=== PATIENT | male | born 1945 | race Caucasian/White ===

== ENCOUNTER 2023-05-06 16:39 | Observation (INO) | payer MEDICARE ==
[2023-05-06] MEDS ORDERED: BABY ASPIRIN 81 MG CHEW ONE (17:02)
[2023-05-06] MEDS ORDERED: BABY ASPIRIN 81 MG CHEW PO ONE (17:04)
[2023-05-06 17:07] LABS: Absolute Neutrophil Ct (ANC) 5.56 x10^3/uL (1.4-6.9); BASOPHIL % 0.5 % (0.0-0.4); Basophil (Absolute #) 0.04 x10^3/uL (0-0.4); Eosinophil % 1.1 % (0.00-5.0); Eosinophil (Absolute #) 0.09 x10^3/uL (0-0.5); Hematocrit 43.3 % (42-50); Hemoglobin 14.7 g/dL (12.5-18.0); IMMATURE GRAN # 0.02 x10^3u/L (0.00-0.03); IMMATURE GRAN % 0.3 % (0.00-0.4); Lymphocyte (Absolute #) 1.46 x10^3/uL (1.0-4.6); Lymphocytes % 18.6 % (24.0-44.0); Mean Cell Volume 89.8 fL (78-100); Mean Corpuscular Hemoglobin 30.5 pg (26-32); Mean Corpuscular Hgb Concent. 33.9 g/dL (32-36); Mean Platelet Volume 9.2 fL (7.5-11.0); Monocyte (Absolute #) 0.69 x10^3/uL (0.0-1.3); Monocytes % 8.8 % (0.0-12.0); Neutrophil % 70.7 % (36.0-66.0); Platelet Count 161 x10^3/uL (150-450); Red Blood Count 4.82 x10^6/uL (4.1-5.6); Red Cell Distribution Width 13.2 % (11.5-14.0); White Blood Count 7.9 x10^3/uL (4.0-10.5)
[2023-05-06 17:35] LABS: ALBUMIN 4.3 g/dL (3.5-5.0); ALKALINE PHOSPHATASE 87 U/L (38-126); BLOOD UREA NITROGEN 14 mg/dL (9-20); CHLORIDE 101 mmol/L (98-107); Calcium 8.7 mg/dL (8.4-10.2); Carbon Dioxide 25 mmol/L (22-30); Creatinine 1 0.82 mg/dL (0.66-1.25); EST GLOMERULAR FILTRATION RATE > 60.0 ML/MIN; Glucose 128 mg/dL (74-106); NT PRO BNPII 230 pg/mL (<300); Potassium 3.3 mmol/L (3.5-5.1); SGOT/AST 37 U/L (17-59); SGPT/ALT 26 U/L (0-50); SODIUM 139 mmol/L (137-145); Total Protein 7.6 g/dL (6.3-8.2)
[2023-05-06] MEDS ORDERED: Klor Con PO ONE ×2 (19:03→19:10)
--- NOTE | 2023-05-06 19:06 | ERPHSYRPT ---
- History of Present Illness Time Seen by Provider: 05/06/23 19:02 Historian: patient Exam Limitations: no limitations Patient Subjective Stated Complaint: C/O Chest pain that started approx one hour prior to coming to the ER. Pain is intermitted and sharp. Triage Nursing Assessment: Patient ambulated back to ER. No SOB or distress noted. He is alert and oriented. Pitting edema noted to BLE; right worse than the left. Skin tone normal with face slightly flushed. Physician History: Patient is a 77-year-old male with a history of hypertension hypercholesterolemia presents to our ED with a history of bilateral chest pain. Pain started approximately 2 hours prior to arrival. Patient denies a history of the same. Patient states he is in severe stress due to the loss of his yesterday. Patient's of a heart attack at home. Patient symptoms are ongoing. He has not taken aspirin. Symptoms are mild to moderate in intensity. No specific worsening improving factors. No associated fever no trauma. No nausea vomiting or diaphoresis. Patient voices no other complaints or concerns at this time. Portions of this note were created with voice recognition technology. There may be grammatical, spelling, punctuation or sound alike errors Timing/Duration: today Activities at Onset: none Quality: sharpness Location: other (Bilateral chest) Chest Pain Radiation: no radiation Severity of Pain-Max: moderate Severity of Pain-Current: mild Modifying Factors: Improves With: nothing Associated Symptoms: denies symptoms Nitro Today/Relief: no nitro taken today Aspirin Treatment Today: no aspirin today Allergies/Adverse Reactions: ranitidine HCl [From Zantac] Allergy (Verified 05/06/23 16:49) Sulfa (Sulfonamide Antibiotics) Allergy (Verified 05/06/23 16:49) valsartan [From Diovan] Allergy (Verified 05/06/23 16:49) Home Medications: Amlodipine Besylate [Norvasc] 7.5 mg PO DAILY 05/06/23 [History] Aspirin [Adult Low Dose Aspirin EC] 1 tab PO DAILY 05/06/23 [History] Atorvastatin Calcium [Lipitor] 1 tab PO HS 05/06/23 [History] Finasteride 5 mg [Proscar 5 MG] 1 tab PO DAILY 05/06/23 [History] Metoprolol Tartrate 50 mg [Lopressor 50 MG] 1 tab PO BID 05/06/23 [History] Nabumetone 1 tab PO DAILY 05/06/23 [History] Omeprazole 1 cap PO DAILY 05/06/23 [History] Tamsulosin HCl 0.4 mg [Flomax 0.4 MG] 1 cap PO DAILY 05/06/23 [History] Hx Tetanus, Diphtheria Vaccination/Date Given: Yes Hx Influenza Vaccination/Date Given: Yes Hx Pneumococcal Vaccination/Date Given: Yes Immunizations Up to Date: Yes Travel Risk - International Travel Have you traveled outside of the country in past 3 weeks: No - Coronavirus Screening Are you exhibiting any of the following symptoms?: No Close contact with a COVID-19 positive Pt in past 14-21 Days: No - Vaccine Status Have you recieved a Covid-19 vaccination: No - Review of Systems Constitutional: No Symptoms, No Fever, No Chills Eyes: No Symptoms Ears, Nose, & Throat: No Symptoms Respiratory: No Symptoms, No Cough, No Dyspnea Cardiac: No Symptoms, No Chest Pain, No Edema, No Syncope Abdominal/Gastrointestinal: No Symptoms, No Abdominal Pain, No Nausea, No Vom iting, No Diarrhea Genitourinary Symptoms: No Symptoms, No Dysuria Musculoskeletal: No Symptoms, No Back Pain, No Neck Pain Skin: No Symptoms, No Rash Neurological: No Symptoms, No Dizziness, No Focal Weakness, No Sensory Changes Psychological: No Symptoms Endocrine: No Symptoms Hematologic/Lymphatic: No Symptoms Immunological/Allergic: No Symptoms All Other Systems: Reviewed and Negative - Past Medical History Pertinent Past Medical History: Yes Neurological History: No Pertinent History, Stroke Cardiac History: Arrhythmia, High Cholesterol, Hypertension Respiratory History: COPD Endocrine Medical History: No Pertinent History Musculoskeletal History: Degenerative Disk Disease GI Medical History: GERD, Gallbladder Disease Other Medical History: leaky heart valve per Dr. Hinkle (patient reports) - Past Surgical History Past Surgical History: Yes Cardiac: Cardiac Catheterization, Cardiac Stent Gastrointestinal: Appendectomy, Cholecystectomy Musculoskeletal: Orthopedic Surgery Other Surgical History: shoulder cyst, right hip replacement, coccyx removed - Social History Smoking Status: Former smoker Exposure to second hand smoke: No Drug Use: none Patient Lives Alone: No - Nursing Vital Signs Nursing Vital Signs: Initial Vital Signs Temperature 97.8 F 05/06/23 16:50 Pulse Rate 68 05/06/23 16:50 Respiratory Rate 18 05/06/23 16:50 Blood Pressure 181/90 05/06/23 16:50 O2 Sat by Pulse Oximetry 99 05/06/23 16:50 Pain Scale Pain Intensity 3 - Physical Exam General Appearance: no apparent distress, alert Eye Exam: PERRL/EOMI, eyes nml inspection Ears, Nose, Throat Exam: normal ENT inspection, moist mucous membranes Neck Exam: normal inspection, non-tender, supple, full range of motion Respiratory Exam: normal breath sounds, lungs clear, airway intact, No respiratory distress Cardiovascular Exam: regular rate/rhythm, normal heart sounds, normal peripheral pulses Gastrointestinal/Abdomen Exam: soft, No tenderness, No mass Back Exam: normal inspection, No CVA tenderness, No vertebral tenderness Extremity Exam: normal inspection, normal range of motion, other (Right lower extremity somewhat more swollen than the left. Negative Homans' sign. Patient states this is chronic. Bilateral extremities neurovascular intact distally.) Neurologic Exam: alert, oriented x 3, cooperative, normal mood/affect, sensation nml, No motor deficits Skin Exam: normal color, warm, dry SpO2 Interpretation: normal SpO2: 96 O2 Delivery: Room Air - Course Nursing assessment & vital signs reviewed: Yes EKG Interpreted by Me: RATE (63), Sinus Rhythm, NORMAL AXIS, NORMAL INTERVALS - Radiology Exams Chest X-ray Interpretation: Interpreted by me (Negative chest x-ray) - CT Exams Chest CT Interpretation: Tele-radiologist Report (CT chest negative PE no acute findings. Small hiatal hernia fatty liver old granulomatous disease) Ordered Tests: Active Orders 24 hr Category Date Time Status Warehouse Delivery Manager STAT Care 05/06/23 16:51 Active EKG-ER Only STAT Care 05/06/23 16:50 Active IV Insertion STAT Care 05/06/23 16:50 Active Pulse Oximetry (ED) STAT Care 05/06/23 16:50 Active CHEST 1 VIEW (PORTABLE) Stat Exams 05/06/23 16:50 Taken CHEST WITH CONTRAST [CT] Stat Exams 05/06/23 19:44 Taken CBC W DIFF Stat Lab 05/06/23 16:55 Completed CMP Stat Lab 05/06/23 16:55 Completed D-DIMER QUANTITATIVE Stat Lab 05/06/23 16:50 Completed NT PRO BNPII Stat Lab 05/06/23 16:55 Completed TROPONIN Q4H Lab 05/06/23 16:55 Completed TROPONIN Q4H Lab 05/06/23 21:00 Ordered TROPONIN Q4H Lab 05/07/23 01:00 Ordered Medication Summary Discontinued Medications Generic Name Dose Route Start Last Admin Trade Name Kathryn PRN Reason Stop Dose Admin Aspirin 243 mg 05/06/23 17:04 05/06/23 17:05 Aspirin 81 Mg Tab.Chew PO 05/06/23 17:05 243 mg STAT ONE Administration Aspirin Confirm 05/06/23 17:02 Aspirin 81 Mg Tab.Chew Administered 05/06/23 17:03 Dose 243 mg .ROUTE .STK-MED ONE Nitroglycerin 1 gm 05/06/23 19:25 05/06/23 19:41 Nitroglycerin 1 Gm Packet TOP 05/06/23 19:26 1 gm STAT ONE Administration Nitroglycerin Confirm 05/06/23 19:41 Nitroglycerin 1 Gm Packet Administered 05/06/23 19:42 Dose 1 gm .ROUTE .STK-MED ONE Potassium Chloride 40 meq 05/06/23 19:03 05/06/23 19:10 Potassium Chloride Tab 10 Meq Tab PO 05/06/23 19:04 40 meq STAT ONE Administration Potassium Chloride Confirm 05/06/23 19:10 Potassium Chloride Tab 10 Meq Tab Administered 05/06/23 19:11 Dose 40 meq PO .STK-MED ONE Lab/Rad Data: Laboratory Result Diagrams 05/06/23 16:55 05/06/23 16:55 Laboratory Results 05/06/23 05/06/23 05/06/23 Range/Units 16:55 16:55 16:55 WBC 7.9 (4.0-10.5) x10^3/uL RBC 4.82 (4.1-5.6) x10^6/uL Hgb 14.7 (12.5-18.0) g/dL Hct 43.3 (42-50) % MCV 89.8 (78-100) fL MCH 30.5 (26-32) pg MCHC 33.9 (32-36) g/dL RDW 13.2 (11.5-14.0) % Plt Count 161 (150-450) x10^3/uL MPV 9.2 (7.5-11.0) fL Gran % 70.7 H (36.0-66.0) % Immature Gran % (Auto) 0.3 (0.00-0.4) % Nucleat RBC Rel Count 0.0 (0.00-0.1) % Eos # (Auto) 0.09 (0-0.5) x10^3/uL Immature Gran # (Auto) 0.02 (0.00-0.03) x10^3u/L Absolute Lymphs (auto) 1.46 (1.0-4.6) x10^3/uL Absolute Monos (auto) 0.69 (0.0-1.3) x10^3/uL Absolute Nucleated RBC 0.00 (0.00-0.01) x10^3u/L Lymphocytes % 18.6 L (24.0-44.0) % Monocytes % 8.8 (0.0-12.0) % Eosinophils % 1.1 (0.00-5.0) % Basophils % 0.5 (0.0-0.4) % Absolute Granulocytes 5.56 (1.4-6.9) x10^3/uL Basophils # 0.04 (0-0.4) x10^3/uL D-Dimer (0.0-0.50) mg/L Sodium 139 (137-145) mmol/L Potassium 3.3 L (3.5-5.1) mmol/L Chloride 101 (98-107) mmol/L Carbon Dioxide 25 (22-30) mmol/L Anion Gap 16.0 H (5-15) MEQ/L BUN 14 (9-20) mg/dL Creatinine 0.82 (0.66-1.25) mg/dL Estimated GFR > 60.0 ML/MIN Glucose 128 H (74-106) mg/dL Calcium 8.7 (8.4-10.2) mg/dL Total Bilirubin 1.70 H (0.2-1.3) mg/dL AST 37 (17-59) U/L ALT 26 (0-50) U/L Alkaline Phosphatase 87 (38-126) U/L Troponin I < 0.012 (0.000-0.034) ng/mL NT-Pro-B Natriuret Pep 230 (<300) pg/mL Serum Total Protein 7.6 (6.3-8.2) g/dL Albumin 4.3 (3.5-5.0) g/dL 05/06/23 Range/Units 16:50 WBC (4.0-10.5) x10^3/uL RBC (4.1-5.6) x10^6/uL Hgb (12.5-18.0) g/dL Hct (42-50) % MCV (78-100) fL MCH (26-32) pg MCHC (32-36) g/dL RDW (11.5-14.0) % Plt Count (150-450) x10^3/uL MPV (7.5-11.0) fL Gran % (36.0-66.0) % Immature Gran % (Auto) (0.00-0.4) % Nucleat RBC Rel Count (0.00-0.1) % Eos # (Auto) (0-0.5) x10^3/uL Immature Gran # (Auto) (0.00-0.03) x10^3u/L Absolute Lymphs (auto) (1.0-4.6) x10^3/uL Absolute Monos (auto) (0.0-1.3) x10^3/uL Absolute Nucleated RBC (0.00-0.01) x10^3u/L Lymphocytes % (24.0-44.0) % Monocytes % (0.0-12.0) % Eosinophils % (0.00-5.0) % Basophils % (0.0-0.4) % Absolute Granulocytes (1.4-6.9) x10^3/uL Basophils # (0-0.4) x10^3/uL D-Dimer 1.00 H* (0.0-0.50) mg/L Sodium (137-145) mmol/L Potassium (3.5-5.1) mmol/L Chloride (98-107) mmol/L Carbon Dioxide (22-30) mmol/L Anion Gap (5-15) MEQ/L BUN (9-20) mg/dL Creatinine (0.66-1.25) mg/dL Estimated GFR ML/MIN Glucose (74-106) mg/dL Calcium (8.4-10.2) mg/dL Total Bilirubin (0.2-1.3) mg/dL AST (17-59) U/L ALT (0-50) U/L Alkaline Phosphatase (38-126) U/L Troponin I (0.000-0.034) ng/mL NT-Pro-B Natriuret Pep (<300) pg/mL Serum Total Protein (6.3-8.2) g/dL Albumin (3.5-5.0) g/dL - Progress Progress: improved Air Movement: good Progress Note: Case discussed with Dr. Vaughn who accepts admission at 1929. Second troponin pending. D-dimer pending. Plan of care discussed with patient. He agrees to admission at [facility] for further evaluation and treatment. Portions of this note were created with voice recognition technology. There may be grammatical, spelling, punctuation or sound alike errors Patient is a 77-year-old male presents to our ED with complaint of chest pain. Patient is under severe stress as his of heart attack in his home yesterday. Patient chest pain is bilateral chest described as a sharp sensation . Patient has significant cardiac risk factors including age high cholesterol and high blood pressure. Patient's last cardiac work-up was approximately a year ago which she states was negative. Patient admits to history of a "leaky cardiac valve". Physical exam reveals swelling of the right lower extremity. No calf pain. Negative Jb's. Patient states this is chronic due to a previous fracture that required a 7-hour surgical procedure for reconstruction. Patient denies shortness of breath. Testing ordered includes EKG which reveals normal sinus rhythm. No obvious ischemic changes at rest. Chest x-ray is essentially nonremarkable. CBC CMP ordered as well. CMP reveals a hypokalemia. Potassium replacement administered. Patient received milliequivalents potassium p.o. D-dimer pending. BNP within normal limits. Troponin negative. Heart score calculation is 4. Admitting diagnosis chest pain acute coronary syndrome. Complexity of problem addressed is moderate new diagnosis with uncertain prognosis Complexity data reviewed and analyzed is extensive. Testing ordered, reviewed and analyzed by Dr. Sosa. Dr. Sosa independently reviewed the EKG and chest x- ray. Patient management and plan of care discussed with hospitalist excepts admission to observation. Risk of complication and or risk morbidity/mortality patient management is high. Patient will require hospitalization for further evaluation and treatment. Plan of care established via shared decision making. Vital stable. Patient voices no other complaints or concerns at this time. Portions of this note were created with voice recognition technology. There may be grammatical, spelling, punctuation or sound alike errors 05/06/23 19:29 D-dimer positive. CTA chest negative for PE. Findings on CTA chest include small hiatal hernia, fatty liver and old granulomatous disease 05/06/23 21:19 Blood Culture(s) Obtained: No Antibiotics given: No Will see patient in: hospital (observation) Counseled pt/family regarding: lab results, diagnosis, rad results - Departure Departure Disposition: Observation Clinical Impression: Chest pain, Hypokalemia, ACS (acute coronary syndrome), Hiatal hernia, Fatty liver Condition: Stable Critical Care Time: No Referrals: KALEN MO MD [Primary Care Provider] - Follow up/PCP as directed
[2023-05-06] MEDS ORDERED: NITRO-BID 2% UD PACKETS TOP ONE (19:25)
[2023-05-06] MEDS ORDERED: NITRO-BID 2% UD PACKETS ONE (19:41)
[2023-05-07] MEDS ORDERED: TYLENOL 325 MG PO PRN (00:47)
--- NOTE | 2023-05-07 00:57 | PCM.HP ---
History of Present Illness - Chief Complaint Chief Complaint: chest pain Date: 05/07/23 History of Present Illness: This is a 77-year-old male admitted to the hospital for evaluation of chest pain. He has past medical history of hypertension, COPD, CAD status post PCI, "leaky heart valve", hyperlipidemia, BPH. He presented to the ED this evening for evaluation of chest pain ongoing 2 hours. He reports that he has had severe stress due to his passing away the day prior. Pain is located on each side of chest which he is able to point to with his fingers, describes as sharp and last about a minute, he has noticed associated GALVEZ and chest heaviness with some of the episodes. No exacerbating symptoms. Pain resolves completely. On arrival he was afebrile, heart rate 57, blood pressure 167/82 sat 98% on room air. His labs significant for WBC 7.9, hemoglobin 14.7, platelets 161, D-dimer 1, potassium 3.3, anion gap 16, creatinine 0.82, troponin negative, BNP 230. CT angio chest was negative per telemetry radiologist report. In the ED he recei mary aspirin nitro bid ointment and potassium. - Review of Systems Eyes: No Symptoms Ears, Nose, & Throat: No Symptoms Respiratory: No Symptoms Cardiac: Chest Pain Abdominal/Gastrointestinal: No Symptoms Genitourinary Symptoms: No Symptoms Musculoskeletal: No Symptoms Skin: No Symptoms Neurological: No Symptoms Psychological: No Symptoms Endocrine: No Symptoms Hematologic/Lymphatic: No Symptoms Medications & Allergies Home Medications: Home Medication List Amlodipine Besylate [Norvasc] 7.5 mg PO DAILY 05/06/23 [History Confirmed 05/06/23] Aspirin [Adult Low Dose Aspirin EC] 1 tab PO DAILY 05/06/23 [History Confirmed 05/06/23] Atorvastatin Calcium [Lipitor] 1 tab PO HS 05/06/23 [History Confirmed 05/06/23] Finasteride 5 mg [Proscar 5 MG] 1 tab PO DAILY 05/06/23 [History Confirmed 05/06/23] Metoprolol Tartrate 50 mg [Lopressor 50 MG] 1 tab PO BID 05/06/23 [History Confirmed 05/06/23] Nabumetone 1 tab PO DAILY 05/06/23 [History Confirmed 05/06/23] Omeprazole 1 cap PO DAILY 05/06/23 [History Confirmed 05/06/23] Tamsulosin HCl 0.4 mg [Flomax 0.4 MG] 1 cap PO DAILY 05/06/23 [History Confirmed 05/06/23] Allergies/Adverse Reactions: Allergies Allergy/AdvReac Type Severity Reaction Status Date / Time ranitidine HCl [From Zantac] Allergy Verified 05/06/23 16:49 Sulfa (Sulfonamide Allergy Verified 05/06/23 16:49 Antibiotics) valsartan [From Diovan] Allergy Verified 05/06/23 16:49 - Past Medical History Past Medical History: Yes Neurological History: No Pertinent History, Stroke ENT History: Cataracts Cardiac History: Arrhythmia, High Cholesterol, Hypertension Respiratory History: COPD Endocrine Medical History: No Pertinent History Musculoskelatal History: Degenerative Disk Disease GI Medical History: GERD, Gallbladder Disease History: No Pertinent History Pyscho-Social History: No Pertinent History Male Reproductive Disorders: No Pertinent History Comment: leaky heart valve per Dr. Hinkle (patient reports) - Past Surgical History Past Surgical History: Yes Neuro Surgical History: No Pertinent History Cardiac History: Cardiac Catheterization, Cardiac Stent Respiratory Surgery: No Pertinent History GI Surgical History: Appendectomy, Cholecystectomy Genitourinary Surgical Hx: No Pertinent History Musculskeletal Surgical Hx: No Pertinent History, Orthopedic Surgery Male Surgical History: No Pertinent History Other Surgical History: shoulder cyst, right hip replacement, coccyx removed - Social History Smoking Status: Former smoker Exposure to second hand smoke: No Alcohol: None Drug Use: none - Physical Exam Vital Signs: Vital Signs - 24 hr Temp Pulse Resp BP BP Pulse Ox 05/06/23 23:57 98.0 F 66 20 158/75 97 05/06/23 23:54 97.8 F 61 166/74 97 05/06/23 21:20 96 05/06/23 20:40 66 19 96 05/06/23 20:36 70 11 L 05/06/23 20:00 152/82 05/06/23 19:45 57 L 13 167/85 98 05/06/23 19:30 63 18 151/84 98 05/06/23 19:15 59 L 15 178/92 97 05/06/23 19:00 62 17 136/85 97 05/06/23 18:45 60 17 166/79 96 05/06/23 18:30 67 18 141/77 97 05/06/23 18:15 62 17 135/80 97 05/06/23 18:00 65 17 157/82 96 05/06/23 17:45 63 18 140/79 98 05/06/23 17:30 62 13 137/78 96 05/06/23 17:15 64 16 141/76 96 05/06/23 17:03 99 05/06/23 17:00 62 14 166/79 97 05/06/23 16:50 97.8 F 68 18 181/90 99 General Appearance: no apparent distress Neurologic Exam: alert, oriented x 3 Eye Exam: PERRL/EOMI Ears, Nose, Throat Exam: normal ENT inspection Neck Exam: normal inspection Respiratory Exam: normal breath sounds Cardiovascular Exam: regular rate/rhythm, normal heart sounds Gastrointestinal/Abdomen Exam: soft, normal bowel sounds Extremity Exam: normal inspection Skin Exam: normal color, warm Results - Labs Lab/Micro Results: Lab Results-Last 24 Hours 05/06/23 05/06/23 05/06/23 Range/Units 16:50 16:55 16:55 WBC 7.9 (4.0-10.5) x10^3/uL RBC 4.82 (4.1-5.6) x10^6/uL Hgb 14.7 (12.5-18.0) g/dL Hct 43.3 (42-50) % MCV 89.8 (78-100) fL MCH 30.5 (26-32) pg MCHC 33.9 (32-36) g/dL RDW 13.2 (11.5-14.0) % Plt Count 161 (150-450) x10^3/uL MPV 9.2 (7.5-11.0) fL Gran % 70.7 H (36.0-66.0) % Immature Gran % (Auto) 0.3 (0.00-0.4) % Nucleat RBC Rel Count 0.0 (0.00-0.1) % Eos # (Auto) 0.09 (0-0.5) x10^3/uL Immature Gran # (Auto) 0.02 (0.00-0.03) x10^3u/L Absolute Lymphs (auto) 1.46 (1.0-4.6) x10^3/uL Absolute Monos (auto) 0.69 (0.0-1.3) x10^3/uL Absolute Nucleated RBC 0.00 (0.00-0.01) x10^3u/L Lymphocytes % 18.6 L (24.0-44.0) % Monocytes % 8.8 (0.0-12.0) % Eosinophils % 1.1 (0.00-5.0) % Basophils % 0.5 (0.0-0.4) % Absolute Granulocytes 5.56 (1.4-6.9) x10^3/uL Basophils # 0.04 (0-0.4) x10^3/uL D-Dimer 1.00 H* (0.0-0.50) mg/L Sodium 139 (137-145) mmol/L Potassium 3.3 L (3.5-5.1) mmol/L Chloride 101 (98-107) mmol/L Carbon Dioxide 25 (22-30) mmol/L Anion Gap 16.0 H (5-15) MEQ/L BUN 14 (9-20) mg/dL Creatinine 0.82 (0.66-1.25) mg/dL Estimated GFR > 60.0 ML/MIN Glucose 128 H (74-106) mg/dL Calcium 8.7 (8.4-10.2) mg/dL Total Bilirubin 1.70 H (0.2-1.3) mg/dL AST 37 (17-59) U/L ALT 26 (0-50) U/L Alkaline Phosphatase 87 (38-126) U/L Troponin I (0.000-0.034) ng/mL NT-Pro-B Natriuret Pep 230 (<300) pg/mL Serum Total Protein 7.6 (6.3-8.2) g/dL Albumin 4.3 (3.5-5.0) g/dL 05/06/23 05/06/23 Range/Units 16:55 21:32 WBC (4.0-10.5) x10^3/uL RBC (4.1-5.6) x10^6/uL Hgb (12.5-18.0) g/dL Hct (42-50) % MCV (78-100) fL MCH (26-32) pg MCHC (32-36) g/dL RDW (11.5-14.0) % Plt Count (150-450) x10^3/uL MPV (7.5-11.0) fL Gran % (36.0-66.0) % Immature Gran % (Auto) (0.00-0.4) % Nucleat RBC Rel Count (0.00-0.1) % Eos # (Auto) (0-0.5) x10^3/uL Immature Gran # (Auto) (0.00-0.03) x10^3u/L Absolute Lymphs (auto) (1.0-4.6) x10^3/uL Absolute Monos (auto) (0.0-1.3) x10^3/uL Absolute Nucleated RBC (0.00-0.01) x10^3u/L Lymphocytes % (24.0-44.0) % Monocytes % (0.0-12.0) % Eosinophils % (0.00-5.0) % Basophils % (0.0-0.4) % Absolute Granulocytes (1.4-6.9) x10^3/uL Basophils # (0-0.4) x10^3/uL D-Dimer (0.0-0.50) mg/L Sodium (137-145) mmol/L Potassium (3.5-5.1) mmol/L Chloride (98-107) mmol/L Carbon Dioxide (22-30) mmol/L Anion Gap (5-15) MEQ/L BUN (9-20) mg/dL Creatinine (0.66-1.25) mg/dL Estimated GFR ML/MIN Glucose (74-106) mg/dL Calcium (8.4-10.2) mg/dL Total Bilirubin (0.2-1.3) mg/dL AST (17-59) U/L ALT (0-50) U/L Alkaline Phosphatase (38-126) U/L Troponin I < 0.012 < 0.012 (0.000-0.034) ng/mL NT-Pro-B Natriuret Pep (<300) pg/mL Serum Total Protein (6.3-8.2) g/dL Albumin (3.5-5.0) g/dL - Radiology Impressions Radiology Exams & Impressions: Radiology Procedures Category Date Time Status CHEST 1 VIEW (PORTABLE) Stat Exams 05/06/23 16:50 Taken CHEST WITH CONTRAST [CT] Stat Exams 05/06/23 19:44 Taken - Other Procedures and Tests Respiratory Therapy 05/07/23 00:47 EKG PRN Assessment/Plan (1) Atypical chest pain Current Visit: Yes Status: Acute Code(s): R07.89 - OTHER CHEST PAIN (2) Hypokalemia Current Visit: Yes Status: Acute Assessment & Plan: ASSESSMENT #Atypical Chest pain #Hypokalemia #H/O CAD s/p PCI #Emotional stress #COPD #History of hypertension #BPH PLAN -Monitor on telemetry -Trend troponins -Supplement potassium -Continue home meds Prophylaxis Lovenox Entire encounter performed via telemedicine Code(s): E87.6 - HYPOKALEMIA Telemedicine Encounter - Telemedicine Encounter Telemedicine Encounter: The entirety of this encounter was performed via Telemedicine"
[2023-05-07] MEDS ORDERED: MELATONIN PO PRN (01:06)
[2023-05-07] MEDS: Lopressor 50 MG PO SCH ×2 (01:21→09:21)
[2023-05-07 02:38] LABS: ANION GAP 14.1 MEQ/L (5-15); BLOOD UREA NITROGEN 14 mg/dL (9-20); CHLORIDE 103 mmol/L (98-107); Calcium 8.4 mg/dL (8.4-10.2); Carbon Dioxide 25 mmol/L (22-30); Creatinine 1 0.88 mg/dL (0.66-1.25); EST GLOMERULAR FILTRATION RATE > 60.0 ML/MIN; Glucose 165 mg/dL (74-106); Potassium 3.3 mmol/L (3.5-5.1); SODIUM 139 mmol/L (137-145)
[2023-05-07 02:45] LABS: Absolute Neutrophil Ct (ANC) 4.99 x10^3/uL (1.4-6.9); BASOPHIL % 0.4 % (0.0-0.4); Basophil (Absolute #) 0.03 x10^3/uL (0-0.4); Eosinophil % 2.1 % (0.00-5.0); Eosinophil (Absolute #) 0.15 x10^3/uL (0-0.5); Hematocrit 42.7 % (42-50); Hemoglobin 14.1 g/dL (12.5-18.0); IMMATURE GRAN # 0.04 x10^3u/L (0.00-0.03); IMMATURE GRAN % 0.6 % (0.00-0.4); Lymphocyte (Absolute #) 1.17 x10^3/uL (1.0-4.6); Lymphocytes % 16.6 % (24.0-44.0); Mean Cell Volume 91.4 fL (78-100); Mean Corpuscular Hemoglobin 30.2 pg (26-32); Mean Platelet Volume 9.4 fL (7.5-11.0); Monocyte (Absolute #) 0.66 x10^3/uL (0.0-1.3); Monocytes % 9.4 % (0.0-12.0); Neutrophil % 70.9 % (36.0-66.0); Platelet Count 162 x10^3/uL (150-450); Red Blood Count 4.67 x10^6/uL (4.1-5.6); Red Cell Distribution Width 13.3 % (11.5-14.0)
[2023-05-07] MEDS ORDERED: PULMICORT 0.5 MG/2 ML RESPULES IH SCH (07:00)
[2023-05-07 07:24] VITALS: BP 130/69
[2023-05-07] MEDS: DUONEB 0.5-3 MG/3 ml Neb IH SCH ×2 (07:26→11:51)
[2023-05-07] MEDS ORDERED: DUONEB 0.5-3 MG/3 ml Neb IH SCH (08:00)
[2023-05-07] MEDS ORDERED: Klor Con PO ONE (08:25)
--- NOTE | 2023-05-07 08:38 | XRAY ---
Indication: Pain. Elevated d-dimer. Pulmonary embolus. Multiple contiguous axial images obtained through the chest using 100 cc Isovue 370 contrast and PE protocol. Comparison: None Good opacification of the pulmonary arteries to include the lobar and segmental branches. No pulmonary embolus. Heart borderline enlarged. Aorta moderately arteriosclerotic without aneurysm/dissection. A few tiny mediastinal and right hilar calcified nodes. No pathologic mediastinal/hilar lymphadenopathy. Small hiatal hernia. Lungs demonstrates mild bilateral dependent atelectasis and tiny right base calcified granuloma. No suspicious pulmonary mass/nodule, infiltrate, effusion, or pneumothorax. Bony thorax intact with osteopenia, mild/moderate degenerative changes throughout the spine, and small superior T12 Schmorl node. Limited upper abdomen demonstrates fatty liver and cholecystectomy clips. Impression: 1. Negative pulmonary embolus. No acute cardiopulmonary abnormalities. 2. Chronic findings including arteriosclerotic disease, chronic bony findings, hiatal hernia, fatty liver, and old granulomatous disease.
--- NOTE | 2023-05-07 08:40 | XRAY ---
Indication: Chest pain. Comparison: September 30, 2014 Portable chest remains clear with incidental tiny calcified granulomas. Heart borderline enlarged. Aorta mildly atherosclerotic and tortuous. Bony thorax intact with osteopenia mild degenerative changes. Impression: Nonacute chest with chronic features.
[2023-05-07] MEDS ORDERED: Proscar 5 MG PO SCH (10:00)
[2023-05-07] MEDS ORDERED: NON-FORMULARY ITEM (Omeprazole [Omeprazole] 40 MG Capsule.Dr) PO SCH (10:00)
[2023-05-07] MEDS ORDERED: NORVASC 5 MG PO SCH (10:00)
[2023-05-07] MEDS ORDERED: Protonix 40MG Tablet PO SCH (10:00)
[2023-05-07] MEDS ORDERED: ENOXAPARIN SODIUM SQ SCH (10:00)
[2023-05-07] MEDS ORDERED: ZOCOR 20MG PO SCH (10:00)
[2023-05-07] MEDS ORDERED: ECOTRIN 81 MG PO SCH (10:00)
[2023-05-07] MEDS ORDERED: Flomax 0.4 MG PO SCH (10:00)
--- NOTE | 2023-05-07 10:48 | PCM.DS ---
Discharge Summary Date of Admission: 05/06/23 21:31 Date of Discharge: 05/07/2023 Admitting Physician: IRINEO NUÑEZ MD Primary Care Provider: CHELY,KALEN Allergies Allergies ranitidine HCl [From Zantac] Allergy (Verified 05/06/23 16:49) Sulfa (Sulfonamide Antibiotics) Allergy (Verified 05/06/23 16:49) valsartan [From Diovan] Allergy (Verified 05/06/23 16:49) Hospital Summary - Hospital Course Hospital Course: 77-year-old man with history of CAD, COPD, hypertension, BPH, hyperlipidemia, who presented with intermittent sharp bilateral chest heaviness lasting less than 1 minute, associated with episodes of headache lasting a few minutes, for the past day. Not associated with exertion and not relieved by rest. Has been under severe stress because his the day before. In between, he has no pain, and is able to ambulate without difficulty. He was admitted under observation for chest pain rule out. CTA of the chest was negative for pulmonary embolus and showed only chronic findings of arterial sclerotic disease. EKGs we re unremarkable, and serial troponins were all negative. Patient was having a few more episodes throughout the night of chest heaviness lasting less than 1 minute, but were controlled by time of discharge. He agreed that he been having a lot of anxiety and stress, and asked for some medication to help with his stress while he is dealing with this. Family is currently coming in to help with arrangements for his 's . Will discharge to home with some PRN anxiety medicines, and follow-up with PCP in 1 to 2 weeks. At this point, appears more due to adjustment disorder than cardiac causes, but if persistent, can follow-up with cardiology for outpatient stress testing. Entirety of encounter took place via telemedicine. Patient consented to telemedicine. Greater than 30 minutes managing discharge. - Vitals & Intake/Output Vital Signs: Vital Signs Temperature 97.3 F 05/07/23 07:23 Pulse Rate 51 L 05/07/23 07:37 Respiratory Rate 16 05/07/23 07:37 Blood Pressure 130/69 05/07/23 07:23 O2 Sat by Pulse Oximetry 95 05/07/23 07:37 Intake & Output: Intake & Output 05/04/23 05/05/23 05/06/23 05/07/23 11:59 11:59 11:59 11:59 Intake Total 300 Balance 300 Weight 74.5 kg - Lab Result Diagrams: 05/07/23 02:24 05/07/23 02:24 Lab Results-Last 24 Hrs: Lab Results-Last 24 Hours 05/06/23 05/06/23 05/06/23 Range/Units 16:50 16:55 16:55 WBC 7.9 (4.0-10.5) x10^3/uL RBC 4.82 (4.1-5.6) x10^6/uL Hgb 14.7 (12.5-18.0) g/dL Hct 43.3 (42-50) % MCV 89.8 (78-100) fL MCH 30.5 (26-32) pg MCHC 33.9 (32-36) g/dL RDW 13.2 (11.5-14.0) % Plt Count 161 (150-450) x10^3/uL MPV 9.2 (7.5-11.0) fL Gran % 70.7 H (36.0-66.0) % Immature Gran % (Auto) 0.3 (0.00-0.4) % Nucleat RBC Rel Count 0.0 (0.00-0.1) % Eos # (Auto) 0.09 (0-0.5) x10^3/uL Immature Gran # (Auto) 0.02 (0.00-0.03) x10^3u/L Absolute Lymphs (auto) 1.46 (1.0-4.6) x10^3/uL Absolute Monos (auto) 0.69 (0.0-1.3) x10^3/uL Absolute Nucleated RBC 0.00 (0.00-0.01) x10^3u/L Lymphocytes % 18.6 L (24.0-44.0) % Monocytes % 8.8 (0.0-12.0) % Eosinophils % 1.1 (0.00-5.0) % Basophils % 0.5 (0.0-0.4) % Absolute Granulocytes 5.56 (1.4-6.9) x10^3/uL Basophils # 0.04 (0-0.4) x10^3/uL D-Dimer 1.00 H* (0.0-0.50) mg/L Sodium 139 (137-145) mmol/L Potassium 3.3 L (3.5-5.1) mmol/L Chloride 101 (98-107) mmol/L Carbon Dioxide 25 (22-30) mmol/L Anion Gap 16.0 H (5-15) MEQ/L BUN 14 (9-20) mg/dL Creatinine 0.82 (0.66-1.25) mg/dL Estimated GFR > 60.0 ML/MIN Glucose 128 H (74-106) mg/dL Calcium 8.7 (8.4-10.2) mg/dL Total Bilirubin 1.70 H (0.2-1.3) mg/dL AST 37 (17-59) U/L ALT 26 (0-50) U/L Alkaline Phosphatase 87 (38-126) U/L Troponin I (0.000-0.034) ng/mL NT-Pro-B Natriuret Pep 230 (<300) pg/mL Serum Total Protein 7.6 (6.3-8.2) g/dL Albumin 4.3 (3.5-5.0) g/dL 05/06/23 05/06/23 05/07/23 Range/Units 16:55 21:32 02:24 WBC (4.0-10.5) x10^3/uL RBC (4.1-5.6) x10^6/uL Hgb (12.5-18.0) g/dL Hct (42-50) % MCV (78-100) fL MCH (26-32) pg MCHC (32-36) g/dL RDW (11.5-14.0) % Plt Count (150-450) x10^3/uL MPV (7.5-11.0) fL Gran % (36.0-66.0) % Immature Gran % (Auto) (0.00-0.4) % Nucleat RBC Rel Count (0.00-0.1) % Eos # (Auto) (0-0.5) x10^3/uL Immature Gran # (Auto) (0.00-0.03) x10^3u/L Absolute Lymphs (auto) (1.0-4.6) x10^3/uL Absolute Monos (auto) (0.0-1.3) x10^3/uL Absolute Nucleated RBC (0.00-0.01) x10^3u/L Lymphocytes % (24.0-44.0) % Monocytes % (0.0-12.0) % Eosinophils % (0.00-5.0) % Basophils % (0.0-0.4) % Absolute Granulocytes (1.4-6.9) x10^3/uL Basophils # (0-0.4) x10^3/uL D-Dimer (0.0-0.50) mg/L Sodium (137-145) mmol/L Potassium (3.5-5.1) mmol/L Chloride (98-107) mmol/L Carbon Dioxide (22-30) mmol/L Anion Gap (5-15) MEQ/L BUN (9-20) mg/dL Creatinine (0.66-1.25) mg/dL Estimated GFR ML/MIN Glucose (74-106) mg/dL Calcium (8.4-10.2) mg/dL Total Bilirubin (0.2-1.3) mg/dL AST (17-59) U/L ALT (0-50) U/L Alkaline Phosphatase (38-126) U/L Troponin I < 0.012 < 0.012 < 0.012 (0.000-0.034) ng/mL NT-Pro-B Natriuret Pep (<300) pg/mL Serum Total Protein (6.3-8.2) g/dL Albumin (3.5-5.0) g/dL 05/07/23 05/07/23 Range/Units 02:24 02:24 WBC 7.0 (4.0-10.5) x10^3/uL RBC 4.67 (4.1-5.6) x10^6/uL Hgb 14.1 (12.5-18.0) g/dL Hct 42.7 (42-50) % MCV 91.4 (78-100) fL MCH 30.2 (26-32) pg MCHC 33.0 (32-36) g/dL RDW 13.3 (11.5-14.0) % Plt Count 162 (150-450) x10^3/uL MPV 9.4 (7.5-11.0) fL Gran % 70.9 H (36.0-66.0) % Immature Gran % (Auto) 0.6 H (0.00-0.4) % Nucleat RBC Rel Count 0.0 (0.00-0.1) % Eos # (Auto) 0.15 (0-0.5) x10^3/uL Immature Gran # (Auto) 0.04 H (0.00-0.03) x10^3u/L Absolute Lymphs (auto) 1.17 (1.0-4.6) x10^3/uL Absolute Monos (auto) 0.66 (0.0-1.3) x10^3/uL Absolute Nucleated RBC 0.00 (0.00-0.01) x10^3u/L Lymphocytes % 16.6 L (24.0-44.0) % Monocytes % 9.4 (0.0-12.0) % Eosinophils % 2.1 (0.00-5.0) % Basophils % 0.4 (0.0-0.4) % Absolute Granulocytes 4.99 (1.4-6.9) x10^3/uL Basophils # 0.03 (0-0.4) x10^3/uL D-Dimer (0.0-0.50) mg/L Sodium 139 (137-145) mmol/L Potassium 3.3 L (3.5-5.1) mmol/L Chloride 103 (98-107) mmol/L Carbon Dioxide 25 (22-30) mmol/L Anion Gap 14.1 (5-15) MEQ/L BUN 14 (9-20) mg/dL Creatinine 0.88 (0.66-1.25) mg/dL Estimated GFR > 60.0 ML/MIN Glucose 165 H (74-106) mg/dL Calcium 8.4 (8.4-10.2) mg/dL Total Bilirubin (0.2-1.3) mg/dL AST (17-59) U/L ALT (0-50) U/L Alkaline Phosphatase (38-126) U/L Troponin I (0.000-0.034) ng/mL NT-Pro-B Natriuret Pep (<300) pg/mL Serum Total Protein (6.3-8.2) g/dL Albumin (3.5-5.0) g/dL - Radiology Exams Ordered Rad Exams-Entire Visit: Radiology Procedures Category Date Time Status CHEST 1 VIEW (PORTABLE) Stat Exams 05/06/23 16:50 Completed CHEST WITH CONTRAST [CT] Stat Exams 05/06/23 19:[address] chest with contrast: Negative for pulmonary embolus. No acute cardiopulmonary abnormalities. Chronic findings including arteriosclerotic disease, chronic bony findings, hiatal hernia, fatty liver, and old granulomatous disease. Chest x-ray: Incidental tiny calcified granulomas, but otherwise no infiltrate, effusion, or edema. - Procedures and Test Procedures and Tests throughout Hospitalization: Therapy Orders & Screens 05/07/23 00:09 ST Screen per Nursing Assess ONCE Comment: Protocol Order Physician Instructions: Greater than [address] Admission Screening Reason For Exam: Triggered on Admission Diagnosis: chest pain CVA/Dyshpagia/Aphasia: No Cognitive Deficits: No Dehydration/Nutrition Deficit: Yes Reflux: No Oral-Motor Difficulties: No Pneumonia: No Usp Resident: No Total Points: 5 05/07/23 00:47 EKG PRN Comment: Diagnosis: chest pain 05/07/23 03:35 Respiratory Therapy Assessment DAILY Comment: Diagnosis: chest pain Discharge Exam General Appearance: no apparent distress, mild distress Neurologic Exam: alert, oriented x 3, cooperative, other (Somewhat flat affect) Respiratory Exam: normal breath sounds, lungs clear, No chest tenderness, No respiratory distress Cardiovascular Exam: regular rate/rhythm, normal heart sounds, No murmur Gastrointestinal/Abdomen Exam: soft, normal bowel sounds, No tenderness, No distention Skin Exam: No rash Final Diagnosis/Problem List - Final Discharge Diagnosis/Problem (1) Adjustment disorder Current Visit: Yes Status: Acute Code(s): F43.20 - ADJUSTMENT DISORDER, UNSPECIFIED (2) Atypical chest pain Current Visit: Yes Status: Acute Code(s): R07.89 - OTHER CHEST PAIN - Discharge Disposition: Home, Self-Care Condition: Stable Prescriptions: New ALPRAZolam 0.25 MG [xanAX 0.25 MG] 0.25 mg PO Q4HPRN PRN #20 tablet PRN Reason: Anxiety Continue Omeprazole 1 cap PO DAILY Tamsulosin HCl 0.4 mg [Flomax 0.4 MG] 1 cap PO DAILY Nabumetone 1 tab PO DAILY Amlodipine Besylate [Norvasc] 7.5 mg PO DAILY Finasteride 5 mg [Proscar 5 MG] 1 tab PO DAILY Atorvastatin Calcium [Lipitor] 1 tab PO HS Aspirin [Adult Low Dose Aspirin EC] 1 tab PO DAILY Metoprolol Tartrate 50 mg [Lopressor 50 MG] 1 tab PO BID Follow up with: KALEN MO MD [Primary Care Provider] - 05/13/23 3:15 pm ([facility])
[2023-05-07 11:57] VITALS: PULSE 62; O2SAT 96
[2023-05-07] MEDS ORDERED: NON-FORMULARY ITEM (Atorvastatin Calcium 10 MG Tablet) PO SCH (22:00)
== END 2023-05-07 12:15 | disposition home or self-care (01) ==
LOC: ED 16:39 → MED SURG 21:31
PROVIDERS: ADMIT Internal Medicine; ATTEND General Practice
DX: F43.20 Adjustment disorder, unspecified (principal); R07.89 Other chest pain; R60.0 Localized edema; I10 Essential (primary) hypertension; E78.5 Hyperlipidemia, unspecified; E87.6 Hypokalemia; I25.10 Atherosclerotic heart disease of native coronary artery without angina pectoris; J44.9 Chronic obstructive pulmonary disease, unspecified; Z79.899 Other long term (current) drug therapy; Z20.828 Contact with and (suspected) exposure to other viral communicable diseases
CPT/HCPCS: 36000; 36415; 71045; 71260; 80048; 80053; 83880; 84484; 85025; 85027; 85379; 93005; 93041; 94640; 94760; 99285; G0378; J1650; Q3014; A9270-GY